=== PATIENT | male | born 1985 | race Caucasian/White ===

== ENCOUNTER 2020-03-16 19:31 | Inpatient (IN) | payer MEDICAID, SELFPAY ==
[~2020-03-16] VITALS: Ht 180.3 cm; Wt 60.3 kg
--- NOTE | 2020-03-16 19:35 | NUR ---
pt BIB [facility] from home for ALOC increasing for the last 2 weeks pe family on scene. pt has a hx of heavy ETOH abuse. per repot, pt was borberline obtunded on scene. upon admit, pt is opening his eyes and answering yes/no questions. lethargic. no obvious airway obstruction. no obvious open wounds. pt has bruising in various sages of healing to extemities and trunk. pt is malodorous. no family a bedside [employer]
--- NOTE | 2020-03-16 19:50 | NUR ---
Dr. Do has been to bedside for eval. OK to complete NS liter from the field at pt is hypotensive and tachycardic
[2020-03-16] MEDS ORDERED: MAGNESIUM SULFATE 1 GM, THIAMINE 100 MG, FOLIC ACID 1 MG, MVI ADULT 10 ML in SODIUM CHL... IV ONE (20:00)
[2020-03-16] MEDS ORDERED: SODIUM CHLORIDE 0.9% 1,000ML IVBOLUS ONE (20:00)
[2020-03-16] MEDS ORDERED: PLEASE ENTER ALLERGIES MC SCH (20:00)
[2020-03-16] MEDS ORDERED: SODIUM CHLORIDE FLUSH 10ML SYR IVF ONE (20:00)
[2020-03-16 20:12] LABS: ALANINE AMINOTRANSFERASE 103 U/L (12-78); ALBUMIN 3.2 g/dL (3.4-5.0); CALCIUM 8.2 mg/dL (8.5-10.1); CHLORIDE 95 mmol/L (98-107); CREATININE 1.56 mg/dL (0.7-1.3)
[2020-03-16 20:23] LABS: ALKALINE PHOSPHATASE 190 U/L (45-117); ANION GAP 33 mmol/L (5-15); BILIRUBIN,TOTAL 2.5 mg/dL (0.2-1.0)
[2020-03-16 20:36] LABS: MEAN CORPUSCULAR HEMOGLOBIN 35.2 pg (27.5-34.5); MEAN CORPUSCULAR HGB CONC 33.6 g/dL (33.2-36.2); RED BLOOD COUNT 4.21 x10^6/uL (4.38-5.82); RED CELL DISTRIBUTION WIDTH 12.7 % (9.4-14.8)
[2020-03-16 20:38] LABS: PLATELET COUNT 44 x10^3/uL (130-400)
--- NOTE | 2020-03-16 20:38 | NUR ---
lab calls with critical plat 44
[2020-03-16 20:39] LABS: MEAN PLATELET VOLUME 7.6 fL (7.4-10.4)
[2020-03-16 20:41] LABS: MD YES
--- NOTE | 2020-03-16 20:45 | NUR ---
mother at bedside
--- NOTE | 2020-03-16 20:55 | NUR ---
lab at bedside, unsuccessful will return
[2020-03-16 20:57] LABS: ACETONE, SERUM Large (80mg/dL) (Negative)
[2020-03-16 20:58] LABS: BAND#(MANUAL) 3.12 x10^3/uL; BANDS%(MANUAL) 30 % (0-7); LYMPHS% (MANUAL) 1 % (22-44); METAMYELOCYTES# (MANUAL) 0.21 x10^3/uL (0-0); METAMYELOCYTES% (MANUAL) 2 % (0-1); MONOS#(MANUAL) 0.52 x10^3/uL (0.3-2.7); MONOS% (MANUAL) 5 % (2-9); MYELOCYTES% (MANUAL) 1 % (0-0); SEG#(MANUAL) 6.34 x10^3/uL (1.8-6.8); SEGS% (MANUAL) 61 % (42-75)
[2020-03-16] MEDS ORDERED: DOCUSATE 100 MG CAPSULE PO PRN (21:00)
[2020-03-16] MEDS ORDERED: ONDANSETRON ODT 4 MG PO PRN (21:00)
[2020-03-16] MEDS ORDERED: ONDANSETRON 2MG/ML, 2ML IVPush PRN (21:00)
[2020-03-16] MEDS ORDERED: PROMETHAZINE 25 MG/ML, 1ML IM PRN (21:00)
[2020-03-16] MEDS ORDERED: OXYcodone IR 5MG TABLET PO PRN (21:00)
[2020-03-16] MEDS ORDERED: D5 IV SCH (21:00)
[2020-03-16] MEDS ORDERED: NACL IV SCH (21:00)
[2020-03-16] MEDS ORDERED: HEPARIN 5,000 UNITS/ML, 1ML SQ SCH (21:00)
[2020-03-16] MEDS ORDERED: morphine SULFATE 10 MG/ML, 1ML IVPush PRN (21:00)
[2020-03-16] MEDS ORDERED: SODIUM BICARB 8.4% IV SCH (21:00)
[2020-03-16] MEDS ORDERED: LABETALOL 5MG/ML, 20ML IVPush PRN (21:00)
[2020-03-16] MEDS ORDERED: SODIUM BICARBONATE 8.4% 150 MEQ in DEXTROSE 5% 1,000 ML IV SCH (21:00)
[2020-03-16] MEDS ORDERED: POLYETHYLENE GLYCOL 17 GM PACKET PO PRN (21:00)
[2020-03-16] MEDS ORDERED: BISACODYL 10 MG SUPP PR PRN (21:00)
--- NOTE | 2020-03-16 21:03 | NUR ---
admitting MD at bedside
[2020-03-16 21:04] LABS: <PLATELET ESTIMATE> DECREASED; <PLT MORPHOLOGY> NORMAL PLT MORPH
[2020-03-16] MEDS ORDERED: SODIUM CHLORIDE FLUSH 10ML SYR IVF PRN (21:30)
[2020-03-16 21:34] LABS: INTERNATIONAL NORMALIZED RATIO 1.3 (0.93-1.1)
[2020-03-16 21:35] LABS: PROTHROMBIN TIME 13.4 Seconds (9.6-11.5)
[2020-03-16] MEDS ORDERED: POTASSIUM CHLORIDE 40 MEQ in SODIUM CHLORIDE 0.9% 500 ML IV ONE (22:00)
--- NOTE | 2020-03-16 22:00 | NUR ---
DR. CAMARILLO AT BEDSIDE GIVING EDUCATION TO PT AND MOTHER ABOUT ADMITING PROCESS.
--- NOTE | 2020-03-16 22:08 | NUR ---
ADMIT ORDERS RECIEVED, WAITING FOR BED
--- NOTE | 2020-03-16 22:50 | NUR ---
REPORT GIVEN TO LATOYA BURKETT
[2020-03-16] MEDS ORDERED: LORazepam 1MG TABLET PO PRN ×4 (23:00)
[2020-03-16] MEDS ORDERED: LORazepam 0.5MG TABLET PO PRN (23:00)
[2020-03-16] MEDS ORDERED: LORazepam 2 MG/ML, 1ML IV PRN ×5 (23:00)
[2020-03-16 23:23] VITALS: BP 90/55
[2020-03-16 23:46] LABS: FREE T4 (FREE THYROXINE) 0.6 ng/dL (0.76-1.46)
[2020-03-17] MEDS: LACTULOSE 20 GM/30 ML UDC PO SCH ×3 (00:13→16:02)
[2020-03-17 01:32] VITALS: BP 90/59
[2020-03-17 02:56] LABS: MICROSCOPIC INDICATED
[2020-03-17 03:24] VITALS: BP 91/58
[2020-03-17 06:04] LABS: CHLORIDE 99 mmol/L (98-107)
[2020-03-17 06:15] LABS: ALANINE AMINOTRANSFERASE 81 U/L (12-78); ALBUMIN 2.4 g/dL (3.4-5.0); ALKALINE PHOSPHATASE 123 U/L (45-117); ANION GAP 31 mmol/L (5-15); BILIRUBIN,TOTAL 2.7 mg/dL (0.2-1.0); CALCIUM 7.4 mg/dL (8.5-10.1); CHOL/HDL RATIO 5.3; CHOLESTEROL, TOTAL 158 mg/dL (140-239); CREATININE 1.61 mg/dL (0.7-1.3); HDL CHOL % 19 % (26-37); HDL CHOLESTEROL (DIRECT) 30 mg/dL (40-60); LDL CHOLESTEROL,CALCULATED 57 mg/dL (54-169); LDL/HDL RATIO 1.9 (0.5-3.0); TOTAL PROTEIN 5.4 g/dL (6.4-8.2); TRIGLYCERIDES 353 mg/dL (50-200); VLDL CHOLESTEROL 71 mg/dL (0-25)
[2020-03-17] MEDS ORDERED: SODIUM BICARB 8.4%, 50ML SYRINGE ONE ×4 (06:29→13:21)
[2020-03-17] MEDS ORDERED: EPINEPHRINE 1 MG/ML, 1ML ONE (06:29)
[2020-03-17] MEDS ORDERED: SODIUM CHLORIDE 0.9%, 250ML ONE (06:29)
[2020-03-17] MEDS ORDERED: CODE BLUE RESPONSE XX ONE (06:29)
[2020-03-17] MEDS ORDERED: EPINEPHRINE SYRINGE 0.1 MG/ML, 10ML ONE ×3 (06:29→13:21)
[2020-03-17 06:44] LABS: MD YES; MEAN CORPUSCULAR HEMOGLOBIN 34.8 pg (27.5-34.5); MEAN CORPUSCULAR HGB CONC 32.7 g/dL (33.2-36.2); MEAN PLATELET VOLUME 9.1 fL (7.4-10.4); RED BLOOD COUNT 3.39 x10^6/uL (4.38-5.82); RED CELL DISTRIBUTION WIDTH 12.6 % (9.4-14.8)
[2020-03-17 06:46] LABS: BAND#(MANUAL) 2.28 x10^3/uL; BANDS%(MANUAL) 35 % (0-7); LYMPH#(MANUAL) 0.13 x10^3/uL (1-3.4); LYMPHS% (MANUAL) 2 % (22-44); MONOS#(MANUAL) 0.07 x10^3/uL (0.3-2.7); MONOS% (MANUAL) 1 % (2-9); SEG#(MANUAL) 4.03 x10^3/uL (1.8-6.8); SEGS% (MANUAL) 62 % (42-75)
[2020-03-17 06:47] LABS: PAPPENHEIMER BODIES 1+
[2020-03-17 06:48] LABS: <PLATELET ESTIMATE> DECREASED; <PLT MORPHOLOGY> NORMAL PLT MORPH
[2020-03-17 06:53] LABS: PLATELET COUNT 31 x10^3/uL (130-400)
[2020-03-17] MEDS ORDERED: PROPOFOL 100 ML IV ONE (06:57)
[2020-03-17] MEDS ORDERED: CALCIUM CHLORIDE 13.6 MEQ in SODIUM CHLORIDE 0.9% 100 ML IV ONE (07:00)
[2020-03-17] MEDS ORDERED: SODIUM BICARBONATE 1 MEQ/ML, 50ML VIAL IVPush ONE ×2 (07:00→12:30)
[2020-03-17] MEDS ORDERED: EPINEPHRINE 5 MG in SODIUM CHLORIDE 0.9% 245 ML IV PRN (07:51)
[2020-03-17] MEDS ORDERED: PROPOFOL 100 ML IV PRN (07:51)
[2020-03-17] MEDS ORDERED: CALCIUM CHLORIDE 10%, 10ML SYR ONE (07:58)
[2020-03-17] MEDS ORDERED: NOREPINEPHRINE 1 MG/ML, 4ML ONE ×2 (07:58→08:00)
[2020-03-17] MEDS ORDERED: DEXTROSE 4 GM TAB.CHEW PO PRN (08:00)
[2020-03-17] MEDS ORDERED: ALBUTEROL/IPRATROPIUM 2.5MG/0.5MG, 3 ML INLINE SCH (08:00)
[2020-03-17] MEDS ORDERED: SODIUM CHLORIDE 0.9% 1,000ML IVBOLUS ONE ×3 (08:00→11:30)
[2020-03-17] MEDS ORDERED: LIDOCAINE-MPF 1%, 2ML ENDO PRN (08:00)
[2020-03-17] MEDS ORDERED: FENTANYL PF 100 MCG/2ML IVPush PRN (08:00)
[2020-03-17] MEDS ORDERED: GLUCAGON 1 MG IM PRN (08:00)
[2020-03-17] MEDS ORDERED: BISACODYL 10 MG SUPP PR PRN (08:00)
[2020-03-17] MEDS ORDERED: DEXTROSE 50%, 50ML SYRINGE IVPush PRN (08:00)
[2020-03-17] MEDS ORDERED: PHARMACY MAY ADJ FOR RENAL FX MC SCH (08:00)
[2020-03-17] MEDS ORDERED: SENNA 176 MG/5 ML ORAL SOL NG PRN (08:00)
[2020-03-17] MEDS ORDERED: DOCUSATE 50 MG/5 ML, 10ML UDC NG PRN (08:00)
[2020-03-17] MEDS ORDERED: LACTULOSE 20 GM/30 ML UDC NG PRN (08:00)
[2020-03-17] MEDS ORDERED: SODIUM BICARBONATE 1 MEQ/ML, 50ML VIAL IVPush STA (08:19)
[2020-03-17] MEDS ORDERED: MICROFIBRILLAR COLLAGEN 1 GM TP ONE (08:30)
[2020-03-17 08:32] LABS: TRIGLYCERIDES 351 mg/dL (50-200)
[2020-03-17 08:35] LABS: TROPONIN I 0.066 ng/mL (0.000-0.045)
[2020-03-17 08:49] LABS: ACETONE, SERUM Large (80mg/dL) (Negative)
[2020-03-17] MEDS ORDERED: SODIUM CHLORIDE FLUSH 10ML SYR IVF SCH (09:00)
[2020-03-17 09:39] VITALS: BP 86/45
[2020-03-17] MEDS ORDERED: THIAMINE 200 MG in SODIUM CHLORIDE 0.9% 50 ML IV SCH (10:30)
[2020-03-17] MEDS: EPINEPHRINE 5 MG in SODIUM CHLORIDE 0.9% 245 ML IV PRN ×2 (10:35→16:13)
[2020-03-17] MEDS: DIAZEPAM 5 MG/ML, 2ML IV SCH ×3 (10:56→17:59)
[2020-03-17 11:06] VITALS: BP 85/46
--- NOTE | 2020-03-17 11:19 | NUR ---
TF RECS: Promote w/ end goal rate of 85mL/hr off Propofol; Recommend TF start rate at 20mL/hr, advance Q8-12hrs as tolerated. Addendum: 03/17/20 at 1121 [address] María Elena Cedillo RD Amended: Links added.
[2020-03-17] MEDS ORDERED: REGULAR INSULIN 100 UNITS in SODIUM CHLORIDE 0.9% 99 ML IV PRN (12:00)
[2020-03-17 12:18] LABS: ANION GAP 26 mmol/L (5-15); CALCIUM 6.3 mg/dL (8.5-10.1); CHLORIDE 106 mmol/L (98-107)
[2020-03-17] MEDS ORDERED: KSCALE TO 4.5 IV SCH (12:30)
[2020-03-17] MEDS ORDERED: POTASSIUM CHLORIDE 10% 40 MEQ/30 ML UDC PO ONE (12:30)
[2020-03-17] MEDS ORDERED: POTASSIUM CHLORIDE 40 MEQ in SODIUM CHLORIDE 0.9% 500 ML IV ONE (12:30)
[2020-03-17] MEDS ORDERED: CALCIUM CHLORIDE 27.2 MEQ in SODIUM CHLORIDE 0.9% 100 ML IV ONE (13:00)
[2020-03-17] MEDS ORDERED: VASOPRESSIN 20 UNIT in SODIUM CHLORIDE 0.9% 99 ML IV PRN ×2 (13:30→14:00)
[2020-03-17] MEDS: NOREPINEPHRINE 8 MG in SODIUM CHLORIDE 0.9% 242 ML IV PRN ×2 (13:34→16:19)
[2020-03-17] MEDS ORDERED: HEPARIN 25,000 UNITS/250ML PMX 250 ML ONE (13:39)
[2020-03-17] MEDS ORDERED: HEPARIN 5,000 UNITS/ML, 1ML ONE (13:44)
[2020-03-17] MEDS ORDERED: HEPARIN 5,000 UNITS/ML, 1ML IV ONE (14:00)
[2020-03-17] MEDS ORDERED: HEPARIN 5,000 UNITS/ML, 1ML IV PRN (14:00)
[2020-03-17] MEDS ORDERED: HEPARIN 25,000 UNITS/250ML PMX 250 ML IV PRN (14:00)
[2020-03-17] MEDS ORDERED: SODIUM BICARBONATE 8.4% 150 MEQ in DEXTROSE 5% 1,000 ML IV SCH (21:00)
== END 2020-03-17 22:40 | disposition expired | DRG 208 ==
LOC: ED 20:01 → EDIP 22:15 → 5SO 22:54 → CCU 03-17 06:31
PROVIDERS: ADMIT Internal Medicine; ATTEND Internal Medicine
PROC: 5A12012 Performance of Cardiac Output, Single, Manual (ICD-10-PCS; principal; 2020-03-16)
PROC: 0BH17EZ Insertion of Endotracheal Airway into Trachea, Via Natural or Artificial Opening (ICD-10-PCS; 2020-03-16)
PROC: 5A1935Z Respiratory Ventilation, Less than 24 Consecutive Hours (ICD-10-PCS; 2020-03-17)
PROC: 30233R1 Transfusion of Nonautologous Platelets into Peripheral Vein, Percutaneous Approach (ICD-10-PCS; 2020-03-17)
DX: J96.00 Acute respiratory failure, unspecified whether with hypoxia or hypercapnia (principal); K85.20 Alcohol induced acute pancreatitis without necrosis or infection; N17.0 Acute kidney failure with tubular necrosis; E43 Unspecified severe protein-calorie malnutrition; G93.41 Metabolic encephalopathy; M62.82 Rhabdomyolysis; R65.10 Systemic inflammatory response syndrome (SIRS) of non-infectious origin without acute organ dysfunction; D68.9 Coagulation defect, unspecified; E87.2 Acidosis; Z68.1 Body mass index [BMI] 19.9 or less, adult; Y90.8 Blood alcohol level of 240 mg/100 ml or more; K70.10 Alcoholic hepatitis without ascites; K72.90 Hepatic failure, unspecified without coma; M54.30 Sciatica, unspecified side; I46.9 Cardiac arrest, cause unspecified; I10 Essential (primary) hypertension; E86.0 Dehydration; D69.59 Other secondary thrombocytopenia; E87.6 Hypokalemia; F10.229 Alcohol dependence with intoxication, unspecified; F17.200 Nicotine dependence, unspecified, uncomplicated; G89.29 Other chronic pain; G83.9 Paralytic syndrome, unspecified; W18.39XA Other fall on same level, initial encounter; Y93.89 Activity, other specified; Y92.89 Other specified places as the place of occurrence of the external cause; Y99.8 Other external cause status; Z79.899 Other long term (current) drug therapy
CPT/HCPCS: 31500; 36415; 36600; 71045; 74018; 80048; 80053; 80061; 80074; 80307; 81001; 82010; 82140; 82306; 82533; 82550; 82607; 82803; 82962; 83036; 83605; 83690; 83735; 83970; 84100; 84439; 84443; 84478; 84484; 85025; 85610; 85730; 86706; 86850; 86900; 87040; 87070; 87077; 87081; 87086; 87186; 87205; 92950; 93306; 94002; 94003; 96365; 96368; 96375; 99291; G0378; J0171; J3360; J3411; J3475; J3480; J7070; J2270; J7030; J7040; J7050; P9035